=== PATIENT | female | born 1980 | race Two or more races ===

== ENCOUNTER 2021-01-07 09:05 | Emergency (ER) | payer OTHER ==
[~2021-01-07] VITALS: Ht 152.4 cm; Wt 95.3 kg
[2021-01-07] MEDS ORDERED: KETO10TA2 PO (13:37)
[2021-01-07] MEDS ORDERED: AMOX1TAB5 PO (13:37)
[2021-01-07] MEDS ORDERED: ZYRTEC10 M2 PO (13:39)
== END 2021-01-07 13:56 | disposition home or self-care (01) ==
LOC: ER 09:05
DX: J32.8 Other chronic sinusitis (principal); J31.2 Chronic pharyngitis

== ENCOUNTER 2024-11-22 08:04 | Emergency (ER) | payer OTHER ==
[~2024-11-22] VITALS: Ht 152.4 cm; Wt 81.2 kg
[~2024-11-22 08:04] MED LIST: AMOX1TAB5 PO; KETO10TA2 PO; ZYRTEC10 M2 PO
[2024-11-22] MEDS ORDERED: ORPHENADRINE CITRATE 30 MG/ML AMPUL IM ONE (09:00)
[2024-11-22] MEDS ORDERED: KETOROLAC TROMETHAMINE 60 MG VIAL IM ONE ×2 (09:00→09:07)
[2024-11-22] MEDS ORDERED: ORPHENADRINE CITRATE 30 MG/ML AMPUL ONE (09:07)
[2024-11-22] MEDS ORDERED: NORFLEX100MG PO (12:52)
== END 2024-11-22 14:52 | disposition home or self-care (01) ==
LOC: ER 08:15
DX: M54.50 Low back pain, unspecified (principal)